=== PATIENT | female | born 2000 | race Hispanic/Latino ===

== ENCOUNTER 2022-06-07 21:11 | Emergency (ER) | payer OTHER ==
[~2022-06-07 21:11] MED LIST changes: -Acetaminophen 500 MG TAB ONE; -Acetaminophen 500 MG TAB PO SCH; +Iopamidol 370 76% 100 ML VIAL ONE; -Iron Sucrose Complex 500 MG in Sodium Chloride 0.9% 250 ML 250 ML IVPB SCH
[2022-06-07] MEDS ORDERED: Acetaminophen 500 MG TAB ONE (21:46)
[2022-06-07 21:50] LABS: #Monocytes 0.5 10x3/uL (0.0-1.1); #Neutrophils 7.4 10x3/uL (1.5-8.4); %Basophils 0.2 % (0.0-2.0); %Eosinophils 0.2 % (0.0-6.0); %Lymphocytes 14.6 % (18.0-47.0); %Neutrophils 79.8 % (40.0-75.0); Hemoglobin 11.3 g/dL (12.0-15.5); Mean Corpuscular HGB CONC 32.8 g/dL (32.0-36.0); Mean Corpuscular Volume 79.5 fl (81.6-98.3); Mean Platelet Volume 10.2 fl (7.4-10.4); Platelet Count 298 10x3/uL (150-450); RBC Distribution Width 17.5 % (11.5-14.5); Red Blood Cell (RBC) Count 4.34 10x6/uL (3.90-5.03); White Blood Cell (WBC) Count 9.3 10x3/uL (3.5-10.5)
[2022-06-07 22:11] LABS: ALT (SGPT) 19 U/L (8-55); AST (SGOT) 23 U/L (5-34); Albumin 3.2 g/dL (3.5-5.0); Alkaline Phosphatase 153 U/L (40-110); Anion Gap 13 mmol/L (10-20); BUN (Urea Nitrogen) 11 mg/dL (7.0-18.7); Bilirubin, Total 0.3 mg/dL (0.2-1.2); Calc. Creatinine Clearance 0 mL/min (70-130); Calcium 8.9 mg/dL (7.8-10.44); Carbon Dioxide 19 mmol/L (22-29); Chloride 110 mmol/L (98-107); Estimated GFR 131; Globulin 3.1 g/dL (2.4-3.5); Glucose 120 mg/dL (70-105); Potassium 4.1 mmol/L (3.5-5.1); Protein, Total 6.3 g/dL (6.0-8.3); Sodium 138 mmol/L (136-145)
== END 2022-06-08 03:20 | disposition home or self-care (01) ==
LOC: CSHERS 21:11
DX: O99.891 Other specified diseases and conditions complicating pregnancy (principal); R07.89 Other chest pain; O99.013 Anemia complicating pregnancy, third trimester; Z3A.38 38 weeks gestation of pregnancy
CPT/HCPCS: 36415; 71045; 80053; 84484; 85025; 85379; 93005

== ENCOUNTER → 2022-06-07 | Day surgery (SDC) | payer OTHER ==
[~2022-06-07] MED LIST: Acetaminophen 500 MG TAB ONE; Acetaminophen 500 MG TAB PO SCH; Iron Sucrose Complex 500 MG in Sodium Chloride 0.9% 250 ML 250 ML IVPB SCH
== END ==
LOC: CSHRAD 12:56
PROVIDERS: ATTEND Obstetrics & Gynecology
DX: O99.019 Anemia complicating pregnancy, unspecified trimester (principal); Z3A.00 Weeks of gestation of pregnancy not specified
CPT/HCPCS: 36415; 71045; 71275; 80053; 84484; 85025; 85379; 93005; 96360; 96361; Q9967

== ENCOUNTER 2022-06-16 19:00 | Inpatient (IN) | payer OTHER ==
[~2022-06-16 19:00] MED LIST changes: +Bupivacaine PF 0.5% 30 ML VIAL ONE; +Bupivacaine/Epinephrine 0.25% 30 ML VIAL ONE; -Iopamidol 370 76% 100 ML VIAL ONE
[2022-06-16] MEDS ORDERED: Ondansetron PF 4 MG/2 ML Vial IVP PRN (21:29)
[2022-06-16] MEDS ORDERED: Methylergonovine 0.2 MG/ML VIAL IM PRN (21:29)
[2022-06-16] MEDS ORDERED: Docusate 100 MG CAP PO PRN (21:29)
[2022-06-16] MEDS ORDERED: Carboprost 250 MCG/ML AMP IM PRN (21:29)
[2022-06-16] MEDS ORDERED: hydrALAZINE 20 MG/ML VIAL SLOW IVP PRN (21:29)
[2022-06-16] MEDS ORDERED: Ibuprofen 800 MG TAB PO PRN (21:29)
[2022-06-16] MEDS ORDERED: Lidocaine 1% (PF) 30 ML VIAL SC PRN (21:29)
[2022-06-16] MEDS ORDERED: Acetaminophen 500 MG TAB PO PRN (21:29)
[2022-06-16] MEDS ORDERED: Misoprostol 200 MCG TAB PR PRN (21:29)
[2022-06-16] MEDS ORDERED: Promethazine HCl 25 MG/ML VIAL IM PRN (21:29)
[2022-06-16] MEDS ORDERED: NS w/ Oxytocin 30 units 500 ML IV SCH ×2 (21:30)
[2022-06-16] MEDS ORDERED: Misoprostol 100 MCG TAB VAG SCH (21:30)
[2022-06-16 22:23] LABS: Hemoglobin 11.9 g/dL (12.0-15.5); Mean Corpuscular HGB CONC 33.4 g/dL (32.0-36.0); Mean Corpuscular Hemoglobin 26.9 pg (27.0-33.0); Mean Corpuscular Volume 80.5 fl (81.6-98.3); Mean Platelet Volume 10.5 fl (7.4-10.4); Platelet Count 335 10x3/uL (150-450); RBC Distribution Width 18.6 % (11.5-14.5); Red Blood Cell (RBC) Count 4.42 10x6/uL (3.90-5.03); White Blood Cell (WBC) Count 9.3 10x3/uL (3.5-10.5)
[2022-06-16 22:50] LABS: Syphilis Antibody Nonreactive (Nonreactive); Syphilis Antibody Index 0.03 S/CO (<1.00 Non-Reactive)
[2022-06-16 22:53] LABS: HBSAg Index 0.17 S/CO (0-0.99); HIV (1/2) Antibody/Antigen Non-Reactive (NonReactive); HIV 1/2 INDEX 0.07 S/CO (<1.00); Hep B Surf Ag Non-Reactive S/CO (NonReactive)
[2022-06-16 23:00] VITALS: BMI 40.4
[2022-06-16 23:51] LABS: ALT (SGPT) 26 U/L (8-55); AST (SGOT) 23 U/L (5-34); Albumin 3.5 g/dL (3.5-5.0); Alkaline Phosphatase 167 U/L (40-110); Anion Gap 14 mmol/L (10-20); BUN (Urea Nitrogen) 16 mg/dL (7.0-18.7); Bilirubin, Total 0.4 mg/dL (0.2-1.2); Calc. Creatinine Clearance 255 mL/min (70-130); Calcium 9.2 mg/dL (7.8-10.44); Carbon Dioxide 19 mmol/L (22-29); Chloride 108 mmol/L (98-107); Estimated GFR 133; Glucose 120 mg/dL (70-105); Potassium 4.4 mmol/L (3.5-5.1); Protein, Total 6.5 g/dL (6.0-8.3); Sodium 137 mmol/L (136-145)
[2022-06-17] MEDS: Misoprostol 100 MCG TAB VAG SCH ×2 (00:32→00:36)
[2022-06-17] MEDS ORDERED: Calcium Carbonate 500 MG ChewTAB PO PRN (00:34)
[2022-06-17] MEDS: Lactated Ringer's 1,000 ML IV SCH ×2 (00:36→12:30)
[2022-06-17 01:10] LABS: SARS-CoV-2 NAA Rapid Test Not Detected (NotDetected)
[2022-06-17 01:31] LABS: Creatinine, Urine 88.41 mg/dL (47-110)
[2022-06-17] MEDS ORDERED: hydrALAZINE 20 MG/ML VIAL SLOW IVP PRN ×2 (02:06)
[2022-06-17] MEDS ORDERED: Labetalol HCl 100 MG/20 ML VIAL SLOW IVP PRN ×2 (02:06)
[2022-06-17] MEDS ORDERED: Calcium Gluc 4.6 MEQ/10 ML (100 MG/ML) SLOW IVP PRN (07:23)
[2022-06-17] MEDS ORDERED: Lorazepam 2 MG/ML VIAL SLOW IVP PRN (07:23)
[2022-06-17] MEDS ORDERED: Magnesium Sulfate 20 gm/500 ml 4 GM/100 ML BAG IVPB SCH (07:45)
[2022-06-17] MEDS ORDERED: Fentanyl 2 mcg/Bup 0.1% Cadd 100 ML ONE (07:45)
[2022-06-17] MEDS: Magnesium Sulfate 20 gm/500 ml 20 GM/500 ML BAG ONE ×2 (07:50→16:06)
[2022-06-17] MEDS ORDERED: Moisturizing Cream (Eucerin) 113 GM JAR TOP PRN (08:52)
[2022-06-17] MEDS ORDERED: Ondansetron PF 4 MG/2 ML Vial IVP PRN (08:52)
[2022-06-17] MEDS ORDERED: ePHEDrine Sulfate 50 MG/10 ML VIAL SLOW IVP PRN (08:52)
[2022-06-17] MEDS ORDERED: Naloxone HCl 0.4 mg/ml Vial IVP PRN ×2 (08:52)
[2022-06-17] MEDS ORDERED: Acetaminophen 325 MG TAB PO PRN (08:52)
[2022-06-17] MEDS ORDERED: Promethazine HCl 25 MG/ML VIAL IM PRN (08:52)
[2022-06-17] MEDS ORDERED: diphenhydrAMINE 50 MG/ML VIAL IVP PRN (08:52)
[2022-06-17] MEDS ORDERED: Communication Order-Pharmacy FS SCH (09:00)
[2022-06-17] MEDS ORDERED: Fentanyl 2 mcg/Bupivacaine 0.1% Cassette 100 ML EPIDURAL SCH (09:00)
[2022-06-17] MEDS ORDERED: Lactated Ringer's 500 ML IV PRN (09:16)
[2022-06-17] MEDS ORDERED: Magnesium Sulfate 20 gm/500 ml 20 GM/500 ML BAG ONE (16:05)
[2022-06-18] MEDS ORDERED: Ibuprofen 600 MG TAB PO PRN (01:17)
[2022-06-18] MEDS ORDERED: Magnesium Sulfate 20 gm/500 ml 20 GM/500 ML BAG ONE (02:36)
[2022-06-18] MEDS ORDERED: Boostrix 0.5 ML (Tdap) VIAL (>/=7 yrs of age) IM ONE (02:53)
[2022-06-18] MEDS ORDERED: Milk Of Magnesia 30 ML UDCUP PO PRN ×2 (02:53→23:58)
[2022-06-18] MEDS ORDERED: Bisacodyl 10 MG SUPP PR PRN ×2 (02:53→23:58)
[2022-06-18] MEDS ORDERED: Magnesium Sulfate 20 gm/500 ml 20 GM/500 ML BAG IVPB SCH (03:00)
[2022-06-18] MEDS ORDERED: Acetaminophen 325 MG TAB PO PRN (03:04)
[2022-06-18 09:04] LABS: Magnesium 6.1 mg/dL (1.6-2.6)
[2022-06-18] MEDS: Ferrous Sulfate 325 MG TAB PO SCH (10:23)
[2022-06-18] MEDS: Docusate 100 MG CAP PO SCH (10:23)
[2022-06-18] MEDS: Ibuprofen 800 MG TAB PO SCH (15:06)
[2022-06-18] MEDS ORDERED: Lanolin Ointment 7 GM TUBE TOP PRN (23:58)
[2022-06-18] MEDS ORDERED: diphenhydrAMINE 25 MG CAP PO PRN (23:58)
[2022-06-18] MEDS ORDERED: hydrALAZINE 20 MG/ML VIAL SLOW IVP PRN (23:58)
[2022-06-18] MEDS ORDERED: Ondansetron PF 4 MG/2 ML Vial IVP PRN (23:58)
[2022-06-18] MEDS ORDERED: Preparation H Ointment 28 GM TUBE PR PRN (23:58)
[2022-06-18] MEDS ORDERED: Misoprostol 200 MCG TAB VAG PRN (23:58)
[2022-06-19] MEDS ORDERED: NS w/ Oxytocin 30 units 500 ML IV SCH (00:30)
[2022-06-19] MEDS: Ibuprofen 800 MG TAB PO SCH ×3 (06:18→13:42)
[2022-06-19] MEDS: Ferrous Sulfate 325 MG TAB PO SCH ×2 (07:10→07:12)
[2022-06-19] MEDS: Misoprostol 100 MCG TAB VAG SCH ×2 (07:11→07:14)
[2022-06-19] MEDS: Lactated Ringer's 1,000 ML IV SCH ×3 (07:11→07:14)
[2022-06-19] MEDS: Docusate 100 MG CAP PO SCH (07:12)
[2022-06-19] MEDS ORDERED: Prenatal Vitamin 1 TAB PO SCH (09:00)
[2022-06-19] MEDS ORDERED: Docusate 100 MG CAP PO SCH (09:00)
[2022-06-19 16:17] VITALS: BP 135/63; TEMP 98.7
== END 2022-06-19 17:40 | disposition home or self-care (01) | DRG 768 ==
LOC: CSHLD 21:09 → CSHPP 06-19 00:05
PROVIDERS: ADMIT Obstetrics & Gynecology; ATTEND Obstetrics & Gynecology
PROC: 10E0XZZ Delivery of Products of Conception, External Approach (ICD-10-PCS; principal; 2022-06-17)
PROC: 0DQR0ZZ Repair Anal Sphincter, Open Approach (ICD-10-PCS; 2022-06-17)
PROC: 3E0P7VZ Introduction of Hormone into Female Reproductive, Via Natural or Artificial Opening (ICD-10-PCS; 2022-06-17)
PROC: 3E033VJ Introduction of Other Hormone into Peripheral Vein, Percutaneous Approach (ICD-10-PCS; 2022-06-17)
PROC: 10H07YZ Insertion of Other Device into Products of Conception, Via Natural or Artificial Opening (ICD-10-PCS; 2022-06-17)
DX: O99.02 Anemia complicating childbirth (principal); Z37.0 Single live birth; O70.20 Third degree perineal laceration during delivery, unspecified; D64.9 Anemia, unspecified; F41.9 Anxiety disorder, unspecified; O99.344 Other mental disorders complicating childbirth; E66.9 Obesity, unspecified; O99.214 Obesity complicating childbirth; Z20.822 Contact with and (suspected) exposure to COVID-19; Z79.82 Long term (current) use of aspirin; Z79.899 Other long term (current) drug therapy; F32.A Depression, unspecified; O36.63X0 Maternal care for excessive fetal growth, third trimester, not applicable or unspecified; O42.02 Full-term premature rupture of membranes, onset of labor within 24 hours of rupture; Z3A.39 39 weeks gestation of pregnancy; O14.14 Severe pre-eclampsia complicating childbirth; O66.0 Obstructed labor due to shoulder dystocia
CPT/HCPCS: 36415; 51702; 76815; 80053; 82570; 83735; 84156; 85027; 86780; 86850; 86900; 86901; 87340; 87389; J2590; J3475; J7120; S0020; U0002

== ENCOUNTER 2023-09-24 22:28 | Emergency (ER) | payer OTHER, SELFPAY ==
[2023-09-25 00:15] LABS: SARS-CoV-2 NAA Rapid Test Not Detected (NotDetected)
== END 2023-09-25 01:45 | disposition home or self-care (01) ==
LOC: CSHERS 22:28
DX: J06.9 Acute upper respiratory infection, unspecified (principal)
CPT/HCPCS: 99283

== ENCOUNTER 2024-07-18 16:09 | Emergency (ER) | payer OTHER ==
[2024-07-18 17:13] LABS: Pregnancy Test - Urine (BHCG) Negative (Negative); Pregu Control Background? CLEAR/WHITE (CLR/WHITE); Pregu Control Bar Appear? YES (CONTROL BAR)
== END 2024-07-18 17:32 | disposition home or self-care (01) ==
LOC: CSHERS 16:09
DX: L03.116 Cellulitis of left lower limb (principal)
CPT/HCPCS: 81025; 99283

== ENCOUNTER → 2024-09-03 | Emergency (ER) | payer OTHER | LOC: CSHERS 18:50 | DX: M25.531 Pain in right wrist (principal); M25.532 Pain in left wrist | CPT/HCPCS: 99283 ==

== ENCOUNTER 2025-09-01 05:30 | Inpatient (IN) | payer OTHER ==
[2025-08-28 15:41] VITALS: BMI 37.3
[2025-09-01] MEDS ORDERED: Methylergonovine 0.2 MG/ML VIAL IM PRN ×2 (05:47→20:14)
[2025-09-01] MEDS ORDERED: Tranexamic Acid 1,000 MG/10 ML VIAL IVP PRN (05:47)
[2025-09-01] MEDS ORDERED: Lidocaine 1% (PF) 30 ML VIAL SC PRN (05:47)
[2025-09-01] MEDS ORDERED: Diphenoxylate HCl/Atropine Tablet PO PRN ×2 (05:47)
[2025-09-01] MEDS ORDERED: Ondansetron PF 4 MG/2 ML Vial IVP PRN ×3 (05:47→20:14)
[2025-09-01] MEDS ORDERED: hydrALAZINE 20 MG/ML VIAL SLOW IVP PRN ×4 (05:47→20:14)
[2025-09-01] MEDS ORDERED: Acetaminophen 500 MG TAB PO PRN (05:47)
[2025-09-01] MEDS ORDERED: Carboprost 250 MCG/ML AMP IM PRN (05:47)
[2025-09-01] MEDS ORDERED: Oxytocin 30 units/NS 500 ML 500 ML IV SCH ×4 (06:00→20:15)
[2025-09-01 11:54] LABS: Hematocrit 34.2 % (34.9-44.5); Hemoglobin 10.8 g/dL (12.0-15.5); Mean Corpuscular Hemoglobin 25.4 pg (27.0-33.0); Mean Corpuscular Volume 80.3 fL (81.6-98.3); Platelet Count 292 10x3/uL (150-450); Red Blood Cell (RBC) Count 4.26 10x6/uL (3.90-5.03); White Blood Cell (WBC) Count 7.91 10x3/uL (3.5-10.5)
[2025-09-01 12:21] LABS: Hep B Surf Ag - L&D Non-Reactive S/CO (NonReactive)
[2025-09-01 12:23] LABS: Syphilis Antibody Index 0.04 S/CO (<1.00 Non-Reactive)
[2025-09-01 13:59] LABS: HIV (1/2) Antibody/Antigen Non-Reactive (NonReactive); HIV 1/2 INDEX 0.13 S/CO (<1.00)
[2025-09-01] MEDS: fentaNYL/Ropivacaine Epidural 100 ML ONE (17:34)
[2025-09-01] MEDS ORDERED: diphenhydrAMINE 50 MG/ML VIAL IVP PRN (17:36)
[2025-09-01] MEDS ORDERED: Acetaminophen 325 MG TAB PO PRN (17:36)
[2025-09-01] MEDS ORDERED: Communication Order-Pharmacy FS SCH (17:45)
[2025-09-01] MEDS ORDERED: fentaNYL 2 mcg/Ropivacaine 0.2% Epidural 100 ML CADD EPIDURAL SCH (17:45)
[2025-09-01] MEDS ORDERED: Benzocaine-Menthol 82.5 ML CAN TOP PRN (20:14)
[2025-09-01] MEDS ORDERED: diphenhydrAMINE 25 MG CAP PO PRN (20:14)
[2025-09-01] MEDS ORDERED: Milk Of Magnesia 30 ML UDCUP PO PRN (20:14)
[2025-09-01] MEDS ORDERED: Bisacodyl 10 MG SUPP PR PRN (20:14)
[2025-09-01] MEDS ORDERED: Preparation H Ointment 28 GM TUBE PR PRN (20:14)
[2025-09-01] MEDS ORDERED: Lanolin Ointment 7 GM TUBE TOP PRN (20:14)
[2025-09-01 20:46] LABS: #Basophils 0.03 10x3/uL (0.0-0.2); #Eosinophils Less than 0.03 10x3/uL (0.0-0.5); #Monocytes 0.57 10x3/uL (0.0-1.1); #Neutrophils 9.27 10x3/uL (1.5-8.4); %Basophils 0.2 % (0.0-2.0); %Eosinophils 0.0 % (0.0-6.0); %Lymphocytes 17.4 % (18.0-47.0); %Monocytes 4.7 % (0.0-10.0); %Neutrophils 77.1 % (40.0-75.0); Hematocrit 33.7 % (34.9-44.5); Hemoglobin 11.0 g/dL (12.0-15.5); Mean Corpuscular Hemoglobin 25.6 pg (27.0-33.0); Mean Corpuscular Volume 78.6 fL (81.6-98.3); Platelet Count 300 10x3/uL (150-450); Red Blood Cell (RBC) Count 4.29 10x6/uL (3.90-5.03); White Blood Cell (WBC) Count 12.04 10x3/uL (3.5-10.5)
[2025-09-01 20:55] LABS: Anion Gap 14 mmol/L (10-20); BUN (Urea Nitrogen) 9 mg/dL (7.0-18.7); Calc. Creatinine Clearance 235 mL/min (70-130); Carbon Dioxide 18 mmol/L (22-29); Chloride 110 mmol/L (98-107); Potassium 4.0 mmol/L (3.5-5.1); Sodium 138 mmol/L (136-145)
[2025-09-01 20:56] LABS: ALT (SGPT) 34 U/L (Less than 34); AST (SGOT) 45 U/L (11-34); Albumin 2.7 g/dL (3.1-4.5); Alkaline Phosphatase 153 U/L (40-110); Bilirubin, Total 0.4 mg/dL (0.3-1.2); Calcium 8.7 mg/dL (7.8-10.44); Globulin 3.7 g/dL (2.4-3.5); Glucose 87 mg/dL (70-105)
[2025-09-01 21:47] LABS: Protein, Urine Random Quant Less than 10 mg/dL (1-14)
[2025-09-01 22:55] LABS: HIV (1/2) Antibody/Antigen Non-Reactive (NonReactive); HIV 1/2 INDEX 0.10 S/CO (<1.00)
[2025-09-01] MEDS: Ibuprofen 800 MG TAB PO SCH (23:58)
[2025-09-02] MEDS: Ferrous Sulfate 325 MG TAB PO SCH (07:23)
[2025-09-02] MEDS: Ibuprofen 800 MG TAB PO SCH (08:05)
[2025-09-02 17:04] VITALS: BP 120/92; TEMP 98.3
== END 2025-09-02 21:00 | disposition home or self-care (01) | DRG 807 ==
LOC: CSHLD 05:38 → CSHPP 22:44
PROVIDERS: ADMIT Family Medicine; ATTEND Family Medicine
PROC: 10E0XZZ Delivery of Products of Conception, External Approach (ICD-10-PCS; principal; 2025-09-01)
PROC: 10907ZC Drainage of Amniotic Fluid, Therapeutic from Products of Conception, Via Natural or Artificial Opening (ICD-10-PCS; 2025-09-01)
PROC: 10H07YZ Insertion of Other Device into Products of Conception, Via Natural or Artificial Opening (ICD-10-PCS; 2025-09-01)
PROC: 0HQ9XZZ Repair Perineum Skin, External Approach (ICD-10-PCS; 2025-09-01)
PROC: 3E03329 Introduction of Other Anti-infective into Peripheral Vein, Percutaneous Approach (ICD-10-PCS; 2025-09-02)
DX: O99.02 Anemia complicating childbirth (principal); Z37.0 Single live birth; O70.0 First degree perineal laceration during delivery; Z3A.39 39 weeks gestation of pregnancy; D64.9 Anemia, unspecified; Z98.890 Other specified postprocedural states; Z79.899 Other long term (current) drug therapy; O76 Abnormality in fetal heart rate and rhythm complicating labor and delivery; O71.82 Other specified trauma to perineum and vulva; W46.1XXA Contact with contaminated hypodermic needle, initial encounter
CPT/HCPCS: 36415; 51701; 51702; 76815; 80053; 82570; 84156; 85027; 86780; 86850; 86900; 86901; 87340; 87389; J2543